=== PATIENT | female | born 1980 | race African-American/Black ===

== ENCOUNTER → 2021-02-14 | Outpatient (CLI) | payer OTHER ==
--- NOTE | 2021-02-14 18:56 | RAD ---
XR LUMBAR SPINE 2-3V History: Low back pain. Comparison: None. Technique: 3 views of the lumbar spine. Findings: There are 5 non-rib bearing lumbar vertebral segments. There is no evidence of fracture. No destructive osseous lesions. There is right lateral fixation of the thoracolumbar spine from T11 through L3. Biphasic thoracolumbar curvature is present. Mild multilevel facet hypertrophy. Bridging osteophytes forming at the level of the lateral fixation. Disc space status are preserved in the lower lumbar spine. Bilateral sacroiliac sclerosis. Soft tissues are unremarkable. IMPRESSION: 1. Thoracolumbar scoliosis status post right lateral fixation T11-L3. 2. Multilevel facet hypertrophy. 3. Bilateral sacroiliac sclerosis. Correlate for sacroiliitis. Electronically signed by: Radu Ray MD (02/14/2021 6:54 PM) [facility]
== END ==
LOC: RAD 14:03
PROVIDERS: ATTEND Anesthesiology Pain Medicine
DX: Z02.71 Encounter for disability determination (principal); M41.85 Other forms of scoliosis, thoracolumbar region; M53.3 Sacrococcygeal disorders, not elsewhere classified; Z98.1 Arthrodesis status; M25.78 Osteophyte, vertebrae
CPT/HCPCS: 72100